=== PATIENT | male | born 1960 | race Caucasian/White ===

== ENCOUNTER 2024-04-10 19:59 | Emergency (ER) | payer MEDICARE, MEDICAID ==
[~2024-04-10] VITALS: Ht 188 cm; Wt 107.5 kg
[~2024-04-10 19:59] MED LIST: ACET-222; CIME300T55 PO; PERIACTIN PO; PRED20TA PO
[2024-04-10] MEDS ORDERED: AMOX-115 PO (21:58)
[2024-04-10] MEDS: amox tr/potassium clavulanate 875/125mg TAB PO ONE (22:20)
[2024-04-10] MEDS: dexamethasone sod phosphate 10mg/ml inj PO STA (22:20)
[2024-04-10 22:38] VITALS: BP 154/86; PULSE 74; RESP 18; TEMP 98.6; O2SAT 99
== END 2024-04-10 22:39 | disposition home or self-care (01) ==
LOC: ER 20:00
DX: S50.811A Abrasion of right forearm, initial encounter (principal); M54.2 Cervicalgia; Z79.52 Long term (current) use of systemic steroids; Z79.1 Long term (current) use of non-steroidal anti-inflammatories (NSAID); Z72.89 Other problems related to lifestyle; Z98.890 Other specified postprocedural states; W55.01XA Bitten by cat, initial encounter; Y93.89 Activity, other specified; Y92.89 Other specified places as the place of occurrence of the external cause; Y99.8 Other external cause status
CPT/HCPCS: 99283; J1100